=== PATIENT | male | born 1990 ===

== ENCOUNTER → 2018-01-13 | Day surgery (SDC) | payer OTHER ==
[2018-01-12 12:21] VITALS: Ht 170.2 cm; Wt 81.8 kg
[~2018-01-13] VITALS: Ht 170.2 cm; Wt 81.8 kg
[~2018-01-13] MED LIST: ATROPINE SULFATE 0.1 MG/ML 5ML SYR IV PRN; BUPIVACAINE 0.25% 30 ML VIAL ONE; CEFAZOLIN 2000MG IV PUSH 15 ML IV SCH; DEXAMETHASONE SOD INJ 4 MG/ML VIAL ONE; EpHEDrine SULFATE INJ 50 MG/ML AMP IV PRN; EpINEphrine INJ 1MG/ML AMP 1 MG/ML AMP ONE; FENTANYL CITRATE INJ 50 MCG/1 ML 2 ML VIAL ONE; FLUMAZENIL 0.1 MG/1 ML 10 ML VIAL IV PRN; HYDROmorphone INJ 2 MG/ML SYR/VIAL IV PRN; KETO10TA PO; KETOROLAC TROMETHAMINE 30 MG/ML VIAL IV. PRN; LABETALOL HCL IV 5 MG/ML 20ML IV PRN; LACTATED RINGER'S 1000ML 1,000 ML IV SCH; LIDOCAINE HCL 2% 2 ML VIAL (20MG/ML) ONE; MEPERIDINE HCL 25 MG/ML CARP IV PRN; MIDAZOLAM HCL 1 MG/ML 2ML VIAL ONE; NALOXONE HCL 0.4 MG/1 ML VIAL/CARP IV PRN; ONDANSETRON INJ 2 MG/ML 2 ML VIAL IV PRN; ONDANSETRON INJ 2 MG/ML 2 ML VIAL ONE; OXYC-57 PO; OXYCODONE/ACETAMINOPHEN 5-325 TAB PO PRN; PHENYLEPHRINE 100MCG/ML 5ML SYR IV PRN; PROPOFOL IV EMULSION 10 MG/ML 20 ML VIAL ONE; SODIUM CHLORIDE 0.9% 1000ML 1,000 ML IV SCH
--- NOTE | 2018-01-13 11:59 | History & Physical Bridge - [place] ---
H&P Re-Evaluation Bridge Note: I have examined the patient, reviewed the History & Physical and in the interval since the performance of the History & Physical I have noted the following changes of clinical significance: No changes noted
--- NOTE | 2018-01-13 13:41 | [facility] Post Operative Brief Note ---
Immediate Operative Summary Operative Date January 13, 2018. Pre-Operative Diagnosis Right Distal Biceps Tendon Rupture Post-Operative Diagnosis Same Procedure(s) Performed Right Distal Biceps Tendon Repair Surgeon Dr. Wall Supervisor Grips Surgeon(s) Yulia Kim PA-C Estimated Blood Loss 5 ML Findings Consistent with Post-Op Diagnosis Specimens None Anesthesia Type General Complication(s) none Disposition Disposition: Recovery Room / PACU
--- NOTE | 2018-01-13 14:01 | Discharge Instructions-SurgCtr ---
Discharge Instructions Date of Service January 13, 2018. Visit Reason for Visit: Right Distal Bicep Tendon Repair Discharge Discharge Diagnosis / Problem: SAME ABOVE Discharge Goals Goal(s): Decrease discomfort, Improve function Activity Recommendations Activity Limitations: as noted below Lifting Limitations: until after follow-up appointment Exercise/Sports Limitations: until after follow-up appointment Shower/Bathe: may shower/bathe in 3 days Anesthesia . Post Anesthesia Instructions: If you have had General Anesthesia or IV Sedation: * Do not drive today. * Resume driving when surgeon permits. * Do not make important decisions or sign legal documents today. * Call surgeon for: 1. Temperature elevations greater than 101 degrees F. 2. Uncontrollable pain. 3. Excessive bleeding. 4. Persistent nausea and vomiting. 5. Medication intolerance (nausea, vomiting or rash). * For nausea and vomiting use only clear liquids such as: tea, soda, bouillon until nausea subsides, then gradually increase diet as tolerated. * If you have any concerns or questions, call your surgeon's office. If physician is unavailable and it is an emergency, call 911 or go to the nearest emergency room. . Instructions / Follow-Up Instructions / Follow-Up MEDICATIONS: * Resume previous medications unless instructed otherwise by your surgeon. * Always take pain medication on a full stomach or with food to avoid upset stomach. * Do not drink alcohol or drive while taking narcotics. * Ibuprofen or Tylenol may be taken if narcotic not needed. SPECIAL CARE INSTRUCTIONS: __ None _X_ Keep extremity elevated and iced x 48 hours; apply ice 20-30 minutes 8-10 times/day. May remove at night. _X_ Sling (MAY REMOVE ONLY TO SHOWER) __24 hrs/day __ Remove at night __ Shoulder Immobilizer __ 24 hrs/day __ Remove at night _X_ Dressing __ Maintain until seen in office, may shower with plastic over site _X_ Remove dressings in 24-48 hours and then may shower _X_ Cover incisions with band-aids after showering __ Do not remove steri-strips Call physician if chills or temperature rises above 102 degrees or pain unrelieved by prescribed pain medications at . . Diet Recommendations Home Diet: no limitations Fluid Restriction: None Procedures Procedures Performed: Right Distal Biceps Tendon Repair Pending Studies Studies pending at discharge: no Work Instructions Return To Work: after follow-up Lifting Limitations: NO LIFTING WITH RIGHT ARM Medical Emergencies . Who to Call and When: Medical Emergencies: If at any time you feel your situation is an emergency, please call 911 immediately. . Non-Emergent Contact Non-Emergency issues call your: Primary Care Provider Call Non-Emergent contact if: you have a fever, temperature is above 101.5 . . "Provider Documentation" section prepared by Giles Kim. .
[2018-01-13] MEDS: FENTANYL CITRATE INJ 50 MCG/1 ML 2 ML VIAL IV PRN ×4 (14:18→14:36)
--- NOTE | 2018-01-13 14:30 | Anesthesia Progress Nt - [facility] ---
Anesthesia Post Op Note Date & Time January 13, 2018 at 14:30 Vital Signs Pain Intensity: 3 Vital Signs Past 12 Hours Date Time Temp Pulse Resp B/P (MAP) Pulse Ox O2 Delivery O2 Flow Rate FiO2 01/13/18 13:55 36.3 52 16 157/66 100 Mask 6 01/13/18 12:00 36.9 62 16 148/90 (109) 100 Room Air Notes Mental Status: alert / awake / arousable, participated in evaluation Pt Amnestic to Procedure: Yes Nausea / Vomiting: adequately controlled Pain: adequately controlled Airway Patency, RR, SpO2: stable & adequate BP & HR: stable & adequate Hydration State: stable & adequate Anesthetic Complications: no major complications apparent
[2018-01-13 14:57] VITALS: TEMP 36.5
[2018-01-13 15:20] VITALS: BP 120/73; O2SAT 100
--- NOTE | 2018-01-13 15:35 | OPERATIVE REPORT ---
DATE OF OPERATION: 01/13/2018 PREOPERATIVE DIAGNOSIS: Right distal biceps tendon rupture. POSTOPERATIVE DIAGNOSIS: Same. PROCEDURE: Open right distal biceps tenodesis. SURGEON: Mauricio Wall DO. [employer] ATTENDANT: Giles Kim PA-C. Bet Taker was necessary for retraction and closure. ANESTHESIA: General. COMPLICATIONS: None. CONDITION: Stable to PACU. INDICATIONS: Clayton is a pleasant 27-year-old male who was lifting weights a couple of days ago when he felt a pop in his right distal biceps. He had an obvious rupture. MRI confirmed the clinical diagnosis. He elected to proceed with a right open distal biceps tenodesis. OPERATION AND FINDINGS: On 01/13/2018, he arrived at [facility] for the above procedure. He was seen in the preoperative holding area, and the operative extremity was identified and signed. He was given a preoperative antibiotic and taken back to the operating room, laid on the table in supine position, and put under general anesthesia. The right elbow was then prepped and draped in sterile fashion. Timeout was done. The patient's operative extremity was properly identified. A longitudinal Luis approach was used. Dissection was taken down between the flexor pronator mass and the mobile wad. Care was taken not to disrupt the neurovascular structures. The radial tuberosity was exposed first, and the tendon was absent. The distal biceps tendon was then brought out of the wound and whipstitched with an Arthrex FiberLoop suture. An Arthrex biceps button was placed on the tails of the FiberLoop. The biceps tendon was then measured to be a size 7. A 7.5 mm hole was drilled in the radial tuberosity through the anterior cortex. The Arthrex biceps button was then passed through the posterior cortex and flipped, and tension slide technique was used to deliver the tendon into the 7.5 mm hole. This gave good fixation. The wound was then irrigated. A 7 x 10 mm biointerference screw was then used. This pushed the tendon ulnarly. The tails were then tied around the screw. The wound was once again irrigated, and hemostasis was obtained. The tourniquet was deflated, and the surrounding soft tissues were injected with 30 mL of Marcaine with epinephrine. The wound was dry. The skin was then closed with 2-0 Vicryl and 4-0 nylon suture. He was then placed in a soft dressing and taken to postanesthesia care unit in stable condition. He tolerated the procedure well. I attest to the content of the Intraoperative Record and any orders documented therein. Any exception s are noted below.
== END | disposition home or self-care (01) ==
LOC: X.SURG 11:41
PROVIDERS: ATTEND Orthopaedic Surgery
DX: S46.201A Unspecified injury of muscle, fascia and tendon of other parts of biceps, right arm, initial encounter (principal); F17.200 Nicotine dependence, unspecified, uncomplicated; F41.9 Anxiety disorder, unspecified; X50.0XXA Overexertion from strenuous movement or load, initial encounter